=== PATIENT | female | born 2000 | race Caucasian/White ===

== ENCOUNTER 2022-03-14 01:37 | Emergency (ER) | payer BC ==
[2022-03-14] MEDS ORDERED: TETANUS,DIPTH,PERTUSS P/F (BOOSTRIX) 0.5 ML VIAL IM ONE (02:45)
[2022-03-14] MEDS ORDERED: LIDOCAINE 1% INJ 10 ML VIAL INJ ONE (02:45)
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
[2022-03-14] MEDS ORDERED: CEPH500T PO (03:44)
[2022-03-14 03:45] VITALS: BP 128/73
[2022-03-14] MEDS ORDERED: CEPHALEXIN 250 MG (KEFLEX) CAP PO SCH (03:45)
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
== END 2022-03-14 03:56 | disposition home or self-care (01) ==
LOC: EDUNIT# 01:37 → ER 01:47
DX: S01.111A Laceration without foreign body of right eyelid and periocular area, initial encounter (principal); S05.11XA Contusion of eyeball and orbital tissues, right eye, initial encounter; F17.210 Nicotine dependence, cigarettes, uncomplicated; Z23 Encounter for immunization; Z28.310 Unvaccinated for COVID-19; Y04.2XXA Assault by strike against or bumped into by another person, initial encounter; Y92.009 Unspecified place in unspecified non-institutional (private) residence as the place of occurrence of the external cause
CPT/HCPCS: 12013; 70450; 70486; 72125; 90715

== ENCOUNTER 2022-03-20 16:51 | Emergency (ER) | payer BC ==
[~2022-03-20 16:51] MED LIST: CEPH500T PO
[2022-03-20 17:00] VITALS: BP 145/90
== END 2022-03-20 17:07 | disposition home or self-care (01) ==
LOC: EDUNIT# 16:51 → ER 16:52
DX: Z48.02 Encounter for removal of sutures (principal)